=== PATIENT | male | born 1945 | race Two or more races ===

== ENCOUNTER 2021-06-27 23:42 | Emergency (ER) | payer OTHER ==
[~2021-06-27] VITALS: Ht 175.3 cm; Wt 113.4 kg
[2021-06-28 01:42] LABS: Basophils # (auto) 0.1 10 ^3/uL (0-0.2); Basophils % (auto) 0.9 % (0.0-2.0); Eosinophils # (auto) 0.1 10 ^3/uL (0-0.8); Eosinophils % (auto) 0.4 % (0.0-7.0); Hematocrit 45.8 % (41.0-53.0); Hemoglobin 15.7 g/dL (13.5-17.5); Lymphocytes % (auto) 15.3 % (10.0-50.0); Mean Corpuscular Hemoglobin 29.8 pg (28.0-32.0); Mean Corpuscular Hgb Conc. 34.4 g/dL (32.0-36.0); Mean Corpuscular Volume 86.8 fL (80.0-100.0); Monocytes # (auto) 0.5 10 ^3/uL (0-1.3); Monocytes % (auto) 3.9 % (0.0-12.0); Neutrophils # (auto) 10.2 10 ^3/uL (1.6-8.6); Neutrophils % (auto) 79.5 % (37.0-80.0); Nucleated Red Blood Cells % 0.1 %; Red Blood Cells 5.27 10^6/uL (4.5-5.90); Red Cell Distribution Width 14.1 % (11.8-14.3); White Blood Cell 12.9 10^3/uL (4.4-10.8)
[2021-06-28 01:51] LABS: Albumin 3.7 g/dL (3.4-5.0); BUN/Creatinine Ratio 12.4; Calcium 9.2 mg/dL (8.5-10.1); Potassium 4.8 mmol/L (3.5-5.1)
[2021-06-28 01:54] LABS: Bilirubin, Total 0.4 mg/dL (0.2-1.0); Total Protein 6.7 g/dL (6.4-8.2)
[2021-06-28] MEDS ORDERED: HYDROcodone-ACET 5/325MG TAB PO ONE (04:45)
[2021-06-28] MEDS ORDERED: LACTATED RINGER'S 1,000 ML IV ONE (04:45)
[2021-06-28 05:30] LABS: Urine Bacteria NONE SEEN /hpf (None Seen); Urine Blood Negative /uL (Negative); Urine Mucus FEW (None Seen); Urine Specific Gravity 1.032 (1.001-1.035); Urine WBC 3 /hpf (0 - 3)
[2021-06-28] MEDS ORDERED: TAM04C PO (08:14)
[2021-06-28 08:31] VITALS: BP 153/90
== END 2021-06-28 08:40 | disposition home or self-care (01) ==
LOC: EDBD 23:42 → ER 23:42
DX: N20.0 Calculus of kidney (principal)
CPT/HCPCS: 36415; 71045; 74176; 80053; 81001; 84484; 85025; 93005